=== PATIENT | female | born 2000 | race Hispanic/Latino ===

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

== ENCOUNTER → 2019-04-21 | Outpatient (REF) | payer OTHER | LOC: M LAB REF 17:35 | PROVIDERS: ATTEND Pediatrics | DX: R19.7 Diarrhea, unspecified (principal) ==